=== PATIENT | male | born 1985 | race Caucasian/White ===

== ENCOUNTER 2022-05-16 14:00 | Outpatient (RCR) | payer MEDICAID, SELFPAY | END 2022-09-27 09:12 | disposition home or self-care (01) | PROVIDERS: PCP Student in an Organized Health Care Education/Training Program; Visit Provider Student in an Organized Health Care Education/Training Program | DX: M62.838 Other muscle spasm (principal); Z51.89 Encounter for other specified aftercare | CPT/HCPCS: 97110; 97140; 97162 ==

== ENCOUNTER 2022-11-21 20:32 | Emergency (ER) | payer MEDICAID, SELFPAY ==
[2022-11-21 21:18] VITALS: BP 134/91; PULSE 86; RESP 16; TEMP 36.8; O2SAT 98; BMI 25.7
[2022-11-21 21:50] VITALS: BP 127/85; BP 132/93
--- NOTE | 2022-11-21 21:50 | CRLHL7_ITS ---
For Patients: As a result of the Century Cures Act, medical imaging exams and procedure reports are released immediately into your electronic medical record. You may view this report before your referring provider. If you have questions, please contact your health care provider. HISTORY: Left-sided chest pain. Remote history of traumatic aortic rupture. COMPARISON: Report of chest two views from 08/07/2019. FINDINGS: A portable erect AP view of the chest was obtained at 21 59 hours. The lungs remain clear. No focal or diffuse infiltrates are present. The heart remains normal in size. The mediastinum is normal in appearance. Bilateral superior lumbar intrapedicular screws and vertical connecting rods are seen. IMPRESSION: Normal portable chest single view. Dictated by Arnel Barth MD @ 11/21/2022 10:58:14 PM (Electronically Signed)
[2022-11-21 21:54] VITALS: O2SAT 98
[2022-11-21 21:59] LABS: Hemoglobin* 17.2 gm/dL (13.5-17.5)
[2022-11-21 22:23] LABS: D Dimer Quantitative* < 0.27 ug/ml (0.00-0.50)
[2022-11-21 22:26] LABS: NT Pro B Type NatriureticPept* 31 pg/mL
[2022-11-21 22:27] LABS: Troponin I* < 0.01 ng/mL (0.01-0.04)
[2022-11-21 23:25] VITALS: BP 127/87
--- NOTE | 2022-11-22 08:41 | ED_ITS ---
HPI - General Adult General Chief complaint: Chest Pain Stated complaint: ear ringing, high bp Time Seen by Provider: 11/21/22 21:39 History of Present Illness HPI narrative: 37-year-old man presenting with significant other to the emergency department with concern of some sharp left chest pain. Seems to begin around 1 p.m. about 8 hours prior to arrival emergency department, noting also a ringing in his ears which was more noticeable when he was alone, feeling flushed, tingliness in hands and feet. Acknowledges a history of panic attacks and thinks this might be the same but just thought he should get checked out. Related Data Home Medications Medication Instructions Recorded Confirmed atenolol 25 mg tablet 25 mg PO DAILY 11/21/22 11/21/22 chlorthalidone 25 mg tablet 25 mg PO DAILY 11/21/22 11/21/22 hydroxyzine HCl .ROUTE PRN 11/21/22 mirtazapine 7.5 mg tablet 7.5 mg PO QPM 11/21/22 11/21/22 Review of Systems Status of ROS: Reports: 6 or more systems reviewed and unremarkable except as noted in History and below PFSH PFSH Social History Smoking Status: Heavy tobacco smoker What tobacco products do you use: cigarettes Smoking packs per day: 0.5 Smoking cigarettes per day: 10.0 Years smoked: 20 Smoking pack-years: 10.00 Do you use any of these nicotine containing products: None Second hand tobacco smoke exposure: No How often do you have a drink containing alcohol: 4 or more times a week How many standard drinks containing alcohol do you have on a typical day: 7 to 9 How often do you have six or more drinks on one occasion: Daily or almost daily AUDIT-C Alcohol total score: 11 Non-prescribed substance use: denies use Exam Narrative: Exam Narrative: pleasant. Flushed. Pretty calm. Breathing easily. Moving all extremities without difficulty. Pain is not reproducible to palpation over the chest. lungs are clear. heart in regular rate and rhythm. moving all extremities w/o difficulty and well perfused. Flushing fades during time in the ER. Const: Vital Signs, click to edit/add: Vital Signs - 24 hr 11/21/22 21:18 11/21/22 21:54 11/21/22 21:50 Temperature 98.2 F Pulse Rate [Pulse Oximeter] 86 Respiratory Rate 16 Blood Pressure Blood Pressure [Ri ght Upper Arm] 134/91 H 132/93 H Pulse Oximetry 98 98 Oxygen Delivery Me thod Room Air 11/21/22 23:25 11/21/22 21:50 Temperature Pulse Rate [Pulse Oximeter] Respiratory Rate Blood Pressure 127/85 Blood Pressure [Ri ght Upper Arm] 127/87 Pulse Oximetry Oxygen Delivery Me thod Documenting provider has reviewed patient's vital signs: yes Course Vital Signs Vital signs: Initial Vital Signs Temperature 98.2 F 11/21/22 21:18 Temperature Source Temporal Artery Scan 11/21/22 21:18 Pulse Rate 86 11/21/22 21:18 Respiratory Rate 16 11/21/22 21:18 Blood Pressure 134/91 H 11/21/22 21:18 Blood Pressure Mean 105 11/21/22 21:18 Blood Pressure Position Sitting 11/21/22 21:18 Pulse Oximetry 98 11/21/22 21:18 Oxygen Delivery Method Room Air 11/21/22 21:18 Vital Signs Temperature 98.2 F 11/21/22 21:18 Pulse Rate 86 11/21/22 21:18 Respiratory Rate 16 11/21/22 21:18 Blood Pressure 134/91 H 11/21/22 21:18 Pulse Oximetry 98 11/21/22 21:18 Oxygen Delivery Method Room Air 11/21/22 21:18 Temperature 98.2 F 11/21/22 21:18 Pulse Rate 86 11/21/22 21:18 Respiratory Rate 16 11/21/22 21:18 Blood Pressure 127/87 11/21/22 23:25 Pulse Oximetry 98 11/21/22 21:54 Oxygen Delivery Method Room Air 11/21/22 21:18 Medical Decision Making MDM Narrative Medical decision making narrative: monitored on quality assurance monitor chassis without event will screen for vascular disruption, pneumothorax/pneumomediastinum, ischemic heart disease, monitor for arrhythmia differential also includes esophageal reflux. labs were reassuring. sxs faded, flushing in face especially faded. risk factor of smoking. unclear why maintained on atenolol; consider sub with prn propanolol if for potential anxiolytic effect? Lab Data Lab results reviewed: Yes I reviewed the patient's lab results Labs: Lab Results 11/21/22 11/21/22 Range/Units 21:15 21:35 Hgb 17.2 (13.5-17.5) gm/dL D-Dimer Quant (PE/DVT) < 0.27 (0.00-0.50) ug/ml Troponin I < 0.01 L (0.01-0.04) ng/mL NT-Pro-B Natriuret Pep 31 pg/mL POC Troponin I 0.00 L (0.01-0.04) ng/ml ECG Data Attestation: I personally reviewed and interpreted this ECG as follows: (Normal sinus rhythm. Rate of 74. No ischemic changes.) Discharge Plan Discharge Clinical Impression: Atypical chest pain, Panic attack Patient Disposition: Home w/ Parent or Adult Condition: Improved Instructions: Chest Wall Pain (ED) Additional Instructions: Hopefully you can still get a good night's sleep. Do your best to quit smoking. [employer] may still have some funds for nicotine replacement products but otherwise at least have offered coaching. One way or another try to get in a little heart pumping exercise daily. Activity Level: No Restrictions Discharge Diet: Regular Prescriptions: No Action hydroxyzine HCl .ROUTE PRN atenolol 25 mg tablet 25 mg PO DAILY chlorthalidone 25 mg tablet 25 mg PO DAILY mirtazapine 7.5 mg tablet 7.5 mg PO QPM Follow Up/Referrals: AXEL SALGADO DO [Primary Care Provider] - Stand Alone Forms: [employer] Info Instructions
== END 2022-11-21 23:26 | disposition home or self-care (01) ==
PROVIDERS: Emergency Provider Family Medicine; PCP Student in an Organized Health Care Education/Training Program
DX: R07.9 Chest pain, unspecified (principal); F41.0 Panic disorder [episodic paroxysmal anxiety]
CPT/HCPCS: 36415; 71045; 83880; 84484; 85018; 85379; 93005; 94761; 99284; 99285

== ENCOUNTER 2025-05-01 18:40 | Inpatient (IN) | payer MEDICAID, SELFPAY ==
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
[2025-05-01 18:49] VITALS: BP 144/91; PULSE 82; RESP 16; TEMP 36.4; O2SAT 98; BMI 25.4
--- NOTE | 2025-05-01 19:01 | CRLHL7_ITS ---
For Patients: As a result of the Century Cures Act, medical imaging exams and procedure reports are released immediately into your electronic medical record. You may view this report before your referring provider. If you have questions, please contact your health care provider. INDICATION: Abdominal pain. TECHNIQUE: CT abdomen and pelvis acquired with 92 cc Isovue 370 IV contrast. COMPARISON: None. FINDINGS: Lower chest: Bibasilar atelectasis. Liver: Unremarkable. Gallbladder and bile ducts: Cholelithiasis. No CT evidence of acute cholecystitis. Pancreas: Unremarkable. Spleen: Unremarkable. Adrenal glands: Unremarkable. Kidneys: Left renal cysts. No hydronephrosis or hydroureter. No obstructing calculi. GI tract: Prominent wall thickening of numerous small bowel loops with mild dilatation and gradual transition to more collapsed small bowel loops within the right lower quadrant. Fluid is present within the colon. Normal appendix. Vasculature: Infrarenal IVC filter. No abdominal aortic aneurysm. Grossly patent vasculature. Lymph nodes: No suspicious lymphadenopathy. Peritoneum/Abdominal Wall: Trace pelvic ascites. No pneumoperitoneum. No acute abdominal wall abnormality. Pelvis: Normal bladder. Unremarkable prostate and seminal vesicles. Bones: No acute abnormality. IMPRESSION: 1. Prominent wall thickening of numerous small bowel loops with fluid present throughout the colon, findings indicative of underlying infectious/inflammatory enterocolitis. Mild dilatation of small-bowel loops with gradual transition to more collapsed bowel loops within the right lower quadrant may be related to enteritis, however superimposed developing/very early small-bowel obstruction is not excluded. 2. Cholelithiasis without CT evidence of acute cholecystitis. Please note that all CT scans at this facility use dose modulation, iterative reconstruction, and/or weight-based dosing when appropriate to reduce radiation dose to as low as reasonably achievable. Dictated by Fareed Templeton MD @ 05/01/2025 7:50:15 PM (Electronically Signed)
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
[2025-05-01 19:25] LABS: Lactate* 1.0 mmol/L (0.5-1.9)
[2025-05-01 19:43] LABS: Albumin* 4.5 g/dL (3.3-5.0); Chloride* 102 mmol/L (96-114); Sodium* 137 mmol/L (135-149)
[2025-05-01 19:44] LABS: Potassium* 3.5 mmol/L (3.6-5.1)
[2025-05-01 19:46] LABS: Blood Urea Nitrogen* 10 mg/dL (5-24); Creatinine* 0.8 mg/dL (0.5-1.5); Est. Creatinine Clearance* 138.76; Estimated Glomerular Filt Rate 117 ml/min
[2025-05-01 19:47] LABS: Alanine Aminotransferase* 22 U/L (4-50); Alkaline Phosphatase* 93 U/L (40-150); Anion Gap 8 mEq/L (7-15); Aspartate Amino Transferase* 28 U/L (12-35); Bilirubin Direct* 0.2 mg/dL (0.0-0.5); Bilirubin Total* 0.8 mg/dL (0.1-1.5); Calcium* 9.2 mg/dL (8.4-10.6); Carbon Dioxide* 27 mmol/L (20-32); Glucose* 103 mg/dL (60-115); Total Protein* 7.1 g/dL (6.0-8.3)
[2025-05-01 19:53] LABS: Appearance Urine Clear (Clear)
[2025-05-01 20:07] LABS: Procalcitonin* < 0.03 ng/mL (<0.50)
[2025-05-01 20:08] LABS: Hematocrit* 44.5 % (37.0-53.0); Hemoglobin* 15.2 gm/dL (13.5-17.5); Immature Granulocytes Abs Auto 0.01 K/uL (0.00-0.30); Immature Granulocytes Pct Auto 0.2 %; Lymphocytes Absolute Auto 1.81 K/uL (0.90-2.90); Mean Corpuscular HGB Conc 34 gm/dL (32-36); Mean Corpuscular Hemoglobin 32 pg (26-34); Mean Corpuscular Volume 94 fL (80-100); RDW Coefficient of Variation % 12.2 % (11.5-15.5); Red Blood Count* 4.74 m/uL (4.30-5.90); White Blood Count* 6.13 K/uL (4.50-11.00)
[2025-05-01 20:11] LABS: Slide Review Reflex No
[2025-05-01 21:05] VITALS: BP 129/94; PULSE 67; RESP 18; O2SAT 97
[2025-05-01 21:10] VITALS: BP 117/84; RESP 16; TEMP 36.6; O2SAT 99
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
[2025-05-01] MEDS: POTASSIUM CHLORIDE 10 MEQ CAPSULE ER 20 MEQ PO (22:35)
[2025-05-01] MEDS: 5 % DEXTROSE IN LAC RINGER'S 1,000 ML 125 ML IV (22:36)
[2025-05-01 23:30] VITALS: BP 126/78; RESP 16; TEMP 36.6; O2SAT 96
[2025-05-01] MEDS: AZITHROMYCIN 250 MG TABLET 500 MG PO (23:44)
[2025-05-02 03:45] VITALS: BP 104/57; RESP 16; TEMP 36.4; O2SAT 95
[2025-05-02] MEDS: 5 % DEXTROSE IN LAC RINGER'S 1,000 ML 125 ML IV (06:26)
[2025-05-02 06:39] LABS: Hematocrit* 43.2 % (37.0-53.0); Hemoglobin* 14.6 gm/dL (13.5-17.5); Immature Granulocytes Abs Auto 0.01 K/uL (0.00-0.30); Immature Granulocytes Pct Auto 0.2 %; Lymphocytes Absolute Auto 1.79 K/uL (0.90-2.90); Mean Corpuscular HGB Conc 34 gm/dL (32-36); Mean Corpuscular Hemoglobin 32 pg (26-34); Mean Corpuscular Volume 94 fL (80-100); RDW Coefficient of Variation % 12.4 % (11.5-15.5); Red Blood Count* 4.58 m/uL (4.30-5.90); White Blood Count* 5.22 K/uL (4.50-11.00)
--- NOTE | 2025-05-02 06:40 | PC.NURSE ---
Pt is alert and oriented x3. Afebrile. Pt denies chest pain, SOB, and N/V. Pt reports 0/10 pain in abdomen at rest and 4-5/10 with movement, managed with PRN medications. Pt is up IND, voiding and tolerating sips of water.
[2025-05-02 06:43] LABS: Slide Review Reflex No
[2025-05-02 06:46] LABS: Chloride* 105 mmol/L (96-114); Potassium* 3.8 mmol/L (3.6-5.1); Sodium* 136 mmol/L (135-149)
[2025-05-02 06:49] LABS: Anion Gap 4 mEq/L (7-15); Blood Urea Nitrogen* 9 mg/dL (5-24); Calcium* 8.9 mg/dL (8.4-10.6); Carbon Dioxide* 27 mmol/L (20-32); Creatinine* 0.8 mg/dL (0.5-1.5); Est. Creatinine Clearance* 138.76; Estimated Glomerular Filt Rate 117 ml/min; Glucose* 110 mg/dL (60-115)
[2025-05-02 07:00] VITALS: BP 114/78; RESP 16; TEMP 36.7; O2SAT 97
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
[2025-05-02] MEDS: AZITHROMYCIN 250 MG TABLET 500 MG PO (09:46)
--- NOTE | 2025-05-02 10:16 | PM.DS1 ---
DS: Providers Provider Date Seen: 05/02/25 Date of admission: 05/01/25 21:36 Primary care physician: AXEL SALGADO DO Admitting Clinician: Amarjit Etienne MD Consults: 05/01/25 21:21 Consult to Physician [CONS] Routine Comment: Consulting Provider: Jordyn Brown Has provider been notified: Yes Attending Physician on discharge: Lyly Gonzales [facility], PA-C [place] [facility] Date of Discharge: 05/02/25 DS: Diagnosis Discharge Diagnosis (1) Gastroenteritis: Status: Acute Problem details: Admitted with 4 day history of diarrhea, intermittent nausea without vomiting, decreased appetite. CT abdomen showing Prominent wall thickening of numerous small bowel loops with fluid present throughout the colon. Reviewed by General surgery, thought to be gastroenteritis. No concern for partial small bowel obstruction at this time. Patient denies any known exposures. Does think he ate some bad humus. No recent antibiotic use. Patient continued to have loose stools, however, reported to decrease overnight. Abdominal pain has improved prior to discharge. No nausea or vomiting. Has remained afebrile. 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 Encouraged to continue with clears, gradually resume a bland diet. No need for further antibiotic which was started last night as likely viral. Understands to return for further evaluation if new or worsening symptoms. (2) Hypertension: Status: Acute Problem details: On atenolol 25 mg daily and recently stopped chlorthalidone and potassium April 26 2025 DS: Summary Hospital Course Hospital Course: Course of care and details as noted above. Remainder of chronic medical comorbidities were monitored and managed with home medications. Status at Discharge Functional status at discharge: independent ambulation Overall status at discharge: patient is back to baseline Time Spent with Patient Time attestation: Total time spent providing and/or coordinating discharge services: Time spent: Greater than 30 minutes Exam Narrative: Exam Narrative: PHYSICAL EXAM General: Pleasant, conversant, NAD Cardiovascular: RRR Pulmonary: No dyspnea Neurological: Alert, answering questions appropriately Skin: Warm, dry. Const: Vital Signs, click to edit/add: Vital Signs - 24 hr 05/01/25 18:49 05/01/25 21:05 05/01/25 21:10 Temperature 97.5 F L 97.9 F Pulse Rate [Pulse Oximeter] 82 67 Respiratory Rate 16 18 16 Blood Pressure [Le ft Arm] 117/84 Blood Pressure [Ri ght Upper Arm] 144/91 H 129/94 H Pulse Oximetry 98 97 99 Oxygen Delivery Me thod Room Air Room Air Room Air 05/01/25 23:30 05/02/25 03:45 05/02/25 07:00 Temperature 97.9 F 97.6 F 98.0 F Pulse Rate [Pulse Oximeter] Respiratory Rate 16 16 16 Blood Pressure [Le ft Arm] 126/78 104/57 L 114/78 Blood Pressure [Ri ght Upper Arm] Pulse Oximetry 96 95 97 Oxygen Delivery Me thod Room Air Room Air Room Air DS: Data Data Completed and Pending Labs on day of discharge: Labs from last 24 hours 05/02/25 05/01/25 06:19 19:02 WBC 5.22 6.13 RBC 4.58 4.74 Hgb 14.6 15.2 Hct 43.2 44.5 MCV 94 94 MCH 32 32 MCHC 34 34 RDW Coeff of Margarita 12.4 12.2 Plt Count 168 185 Neut % (Auto) 53.4 60.2 Lymph % (Auto) 34.3 29.5 [place] % (Auto) 9.0 8.0 Eos % (Auto) 2.7 1.8 Baso % (Auto) 0.4 0.3 Neut # (Auto) 2.79 3.69 Lymph # (Auto) 1.79 1.81 [place] # (Auto) 0.50 0.50 Eos # (Auto) 0.14 0.11 Baso # (Auto) 0.02 0.02 Abs Immat Gran (auto) 0.01 0.01 Imm/Tot Granulo (auto) 0.2 0.2 Sodium 136 137 Potassium 3.8 3.5 L Chloride 105 102 Carbon Dioxide 27 27 Anion Gap 4 L 8 BUN 9 10 Creatinine 0.8 0.8 Estimated Creat Clear 138.76 138.76 Estimated GFR 117 117 Glucose 110 103 Lactate 1.0 Calcium 8.9 9.2 Magnesium 2.0 Total Bilirubin 0.8 Direct Bilirubin 0.2 AST 28 ALT 22 Alkaline Phosphatase 93 C-Reactive Protein 1.2 H Total Protein 7.1 Albumin 4.5 Lipase 48 Procalcitonin < 0.03 L Urine Color Yellow Urine Appearance Clear Urine pH 7.5 Ur Specific [place] 1.010 Urine Protein Negative Urine Glucose (UA) Negative Urine Ketones Negative Urine Blood Negative Urine Nitrite Negative Urine Bilirubin Negative Urine Urobilinogen 0.2 Ur Leukocyte Esterase Negative Urine RBC 0-2 Urine WBC 0-2 Ur Squamous Epith Cells None Urine Bacteria None Preliminary micro results at discharge 05/01/25 19:02 Urine Culture - Preliminary Urine,Clean Catch Culture in Progress Imaging CT scan - abdomen: Attestation: I have reviewed the pertinent imaging results. Radiologist's impression: Lower chest: Bibasilar atelectasis. Liver: Unremarkable. Gallbladder and bile ducts: Cholelithiasis. No CT evidence of acute cholecystitis. Pancreas: Unremarkable. Spleen: Unremarkable. Adrenal glands: Unremarkable. Kidneys: Left renal cysts. No hydronephrosis or hydroureter. No obstructing calculi. GI tract: Prominent wall thickening of numerous small bowel loops with mild dilatation and gradual transition to more collapsed small bowel loops within the right lower quadrant. Fluid is present within the colon. Normal appendix. Vasculature: Infrarenal IVC filter. No abdominal aortic aneurysm. Grossly patent vasculature. Lymph nodes: No suspicious lymphadenopathy. Peritoneum/Abdominal Wall: Trace pelvic ascites. No pneumoperitoneum. No acute abdominal wall abnormality. Pelvis: Normal bladder. Unremarkable prostate and seminal vesicles. Bones: No acute abnormality. IMPRESSION: 1. Prominent wall thickening of numerous small bowel loops with fluid present throughout the colon, findings indicative of underlying infectious/inflammatory enterocolitis. Mild dilatation of small-bowel loops with gradual transition to more collapsed bowel loops within the right lower quadrant may be related to enteritis, however superimposed developing/very early small-bowel obstruction is not excluded. 2. Cholelithiasis without CT evidence of acute cholecystitis. Discharge Plan Discharge Disposition: Home, Self-Care Date of Admission: 05/01/25 21:36 Attending Provider on Discharge: Lyly Gonzales Consulting Providers: Jordyn Brown Primary Care Provider: AXEL SALGADO Condition: Stable Anticipated Discharge Date/Time: 05/02/25 10:11 Discharge Medications: Continued atenolol 25 mg tablet 25 mg PO DAILY Discharge Orders: Discharge Order (Routine); Ordered 05/02/25 Ordered By: Lyly Gonzales Patient Education: Colitis (ED) Additional Instructions: Continue to drink electrolyte replacement. You can start a bland diet as tolerated. You do not need any further antibiotics. Activity Level: Activity as Tolerated Diet Detail: Clears, electrolytes. [place] diet (BRAT - bananas rice applesauce toast) Follow Up Appointments: AXEL SALGADO DO [Primary Care Provider, Family Practice] Referral Note: Outpatient follow-up is needed Forms: Patient Belongings, MyHealth Info Instructions
== END 2025-05-02 11:00 | disposition home or self-care (01) | DRG 392 ==
LOC: ED 20:41 → MEDSURG 21:07
PROVIDERS: Admitting Provider Family Medicine; Emergency Provider Family Medicine; PCP Student in an Organized Health Care Education/Training Program; Visit Provider Family Medicine
DX: K52.9 Noninfective gastroenteritis and colitis, unspecified (principal); I10 Essential (primary) hypertension; F17.210 Nicotine dependence, cigarettes, uncomplicated
CPT/HCPCS: 36415; 74177; 80048; 80076; 81001; 83605; 83690; 83735; 84145; 85025; 86140; 87086; 99284; 99285; A9270; G0378; Q9967